=== PATIENT | male | born 1985 | race Two or more races ===

== ENCOUNTER 2024-09-21 06:15 | Day surgery (SDC) | payer MEDICAID, SELFPAY ==
--- NOTE | 2024-09-20 06:00 | EKG_ITS ---
[facility] Test Date: 2024-09-20 Pat Name: ALEXANDRA GATES Department: Room: - Gender: Male Drier: JOHN : 1985 Requested By: Lucian Keller Order Number: [id number] Reading MD: Lucian Keller Measurements Intervals [place] Rate: 79 P: 30 DC: 165 QRS: 56 QRSD: 103 T: 30 QT: 360 QTc: 413 Interpretive Statements SINUS RHYTHM INCOMPLETE RIGHT BUNDLE BRANCH BLOCK [90+ ms QRS DURATION, TERMINAL R IN V1/V2, 40+ ms S IN I/aVL/V4/V5/V6] No previous ECG available for comparison /store/S0/[id number].pdf
[2024-09-20 08:03] VITALS: BMI 30.5
[2024-09-20 08:21] LABS: Collection Type, Urine Clean Catch
[2024-09-20 08:59] LABS: Basophils # (Auto) 0.1 Thou/mm3 (0.0-0.2); Basophils % (Auto) 1 % (0-2.5); Eosinophils # (Auto) 0.7 Thou/mm3 (0.0-0.5); Eosinophils % (Auto) 7 % (0-10); Hematocrit 46.2 % (41.0-53.0); Hemoglobin 14.8 g/dL (13.5-16.0); Immature Granulocytes % (Auto) 1 % (0-0); Immature Granulocytes Auto 0.05 Thou/mm3 (0.00-0.00); Lymphocytes # (Auto) 2.1 Thou/mm3 (1.0-4.8); Lymphocytes % (Auto) 20 % (10-50); Mean Corpuscular Hemoglobin 27.5 pg (25.0-35.0); Mean Corpuscular Volume 86 fL (80-100); Monocytes # (Auto) 0.8 Thou/mm3 (0.0-0.8); Monocytes % (Auto) 8 % (0-12); Neutrophils # (Auto) 6.6 Thou/mm3 (1.8-7.7); Neutrophils % (Auto) 64 % (37-80); Nucleated Red Blood Cell % 0 /100 WBC (0); Platelet Count 287 Thou/mm3 (140-440); RDW Standard Deviation 42.5 fL (35.1-43.9); Red Blood Count 5.39 Miln/mm3 (4.50-5.90); White Blood Count 10.4 Thou/mm3 (3.8-10.6)
[2024-09-20 09:06] LABS: Bacteria,Urine Rare; Bilirubin,Urine Negative (Negative); Blood,Urine Negative (Negative); Clarity,Urine Clear (Clear/Hazy); Color,Urine Colorless (Lt Yel-Yel); Glucose, Urine Negative (Negative); Ketones,Urine Negative (Negative); Leukocyte Esterase,Urine Negative (Negative); Nitrite,Urine Negative (Negative); Protein,Urine Negative (Neg - Trace); RBC,Urine 2 /hpf (0-3); Specific Gravity,Urine 1.014 (1.001-1.035); Squamous Epithelial Cell,Urine < 1 /hpf (0-5); Urobilinogen,Urine Negative mg/dL (0.0-1.0); WBC,Urine 1 /hpf (0-5)
[2024-09-20 09:14] LABS: Alanine Aminotransferase 62 U/L (10-49); Albumin, Serum 4.3 gm/dL (3.5-5.0); Albumin/Globulin Ratio 1.5 (1.2-2.2); Alkaline Phosphatase 84 U/L (46-116); Anion Gap 11 (7-16); Aspartate Amino Transferase 38 U/L (0-34); BUN/Creatinine Ratio 10 Ratio (12-20); Bilirubin,Total 0.5 mg/dL (0.3-1.2); Blood Urea Nitrogen 12 mg/dL (9-23); Calcium 8.5 mg/dL (8.3-10.6); Calcium (Corrected) 8.5 mg/dL (8.5-10.1); Carbon Dioxide 26.5 mMol/L (20.0-31.0); Chloride 105 mMol/L (98-107); Creatinine (Component) 1.2 mg/dL (0.6-1.3); Estimated Creatinine Clearance 102.2 mL/min (>60); Globulin 2.9 gm/dL (2.3-3.5); Glucose 135 mg/dL (74-106); Osmolality,Calculated 284 (275-295); Potassium 3.9 mMol/L (3.4-5.1); Sodium 142 mMol/L (136-145); Total Protein 7.2 gm/dL (5.7-8.2); eGFR > 60 See Note
--- NOTE | 2024-09-20 15:49 | ESHP_ITS ---
RE: ALEXANDRA GATES : 1985 DATE OF ADMISSION: 09/21/2024 HISTORY OF PRESENT ILLNESS: The patient is a 38-year-old gentleman with a history of tight foreskin. He is now scheduled to have circumcision. PAST SURGICAL HISTORY: None. PAST MEDICA L HISTORY: No history of diabetes mellitus. He has a history of hypertension for which he takes lisinopril. SOCIAL HISTORY: He has five kids. ALLERGIES: NONE KNOWN. PHYSICAL EXAMINATION: HEENT: Normal. NECK: Supple. LUNGS: Clear. CARDIOVASCULAR: Heart sounds are normal. ABDOMEN: Obese. The patient weighs 309 pounds. GENITOURINARY: Phallus reveals tight phimosis with some skin changes like leukoderma. IMPRESSION: Tight phimosis and obesity. PLAN: Circumcision. Planned procedure, risks and complications have been discussed with the patient. The patient has understood them and agreed to proceed. DT: 15:02:11 TT: 15:48:00 Ref: [id number] - TID: [id number]
[2024-09-21] VITALS (9 sets, daily range): BP systolic 130–177; BP diastolic 75–109; PULSE 71–82; RESP 13–18; TEMP 36.2–36.8; O2SAT 93–99; BMI 42.5
--- NOTE | 2024-09-21 07:30 | SUR.PREOP ---
Patient expressed gratitude for prayer before their procedure
--- NOTE | 2024-09-21 07:30 | SUR.PREOP ---
Patient expressed gratitude for prayer before their procedure
--- NOTE | 2024-09-21 09:52 | SUR.PHASEI ---
pt received from OR in recovery bay 5. pt obtunded, breathing unlabored on oxymask 15l, oral airway in place. v/s stable. pt dressing to penis cdi. report received from Sushma CHRISTIANSON and Dr. Ace.
--- NOTE | 2024-09-21 10:22 | SUR.PHASEI ---
pt able to tolerate oral fluids without difficulty swallowing or nausea/vomiting.
[2024-09-21] MEDS: ALBUTEROL RT 2.5 MG/3 ML NEBU INH (10:33)
--- NOTE | 2024-09-21 11:08 | SUR.PHASEII ---
pt awake and alert, breathing unlabored on room air. v/s stable. pt dressing to penis cdi. pt able to ambulate to wheelchair with steady gait. d/c instructions given with Shahrzad in room, all questions answered. pt d/c via wheelchair with all belongings.
--- NOTE | 2024-09-21 16:24 | ESOP_ITS ---
RE: ALEXANDRA GATES : 1985 DATE OF OPERATION: 09/21/2024 PREOPERATIVE DIAGNOSES: Tight phimosis and obesity. POSTOPERATIVE DIAGNOSES: Tight phimosis and obesity. PROCEDURE PERFORMED: Circumcision. ANESTHESIA: General. INDICATION: The patient is a 38-year-old gentleman who was referred to me with a history of tight phimosis. He is quite obese. There is no history of diabetes mellitus. He was now scheduled to have circumcision. Planned procedure, risks, and complications have been discussed with the patient. The patient understood them and agreed to proceed. DESCRIPTION OF PROCEDURE: After the patient was brought to the operating table under adequate general anesthesia and supine position, parts were prepped and draped in the usual fashion. Circumcision was then carried out in a standard fashion by excising the foreskin in a circumferential manner. Complete hemostasis was obtained by using electrocoagulation. Skin was reapproximated back by placing interrupted sutures of 3-0 chromic catgut. Local anesthetic was injected at the base of the penis. Sterile dressing was then applied. The patient was then transferred to the recovery room in a satisfactory condition having tolerated the entire procedure well. Sponge count and needle count at the end of the procedure was found to be correct. Estimated blood loss was approximately 5 mL. DT: 10:00:51 TT: 16:22:00 Ref: [id number] - TID: [id number]
== END 2024-09-21 11:08 | disposition home or self-care (01) ==
PROVIDERS: Anesthesiology; PCP Family Medicine; Referring Provider Surgery; Visit Provider Surgery
PROC: (CPT 54161; principal; 2024-09-21 08:30)
DX: N47.1 Phimosis (principal); I10 Essential (primary) hypertension; E66.9 Obesity, unspecified; Z68.41 Body mass index [BMI] 40.0-44.9, adult
CPT/HCPCS: 54161; 36415; 80048; 80053; 81001; 85025; 93005; A4217; A4649; J0690; J1100; J1885; J2250; J2371; J2405; J2704; J3010; J3490; A9270; J0665